=== PATIENT | female | born 1980 | race Caucasian/White ===

== ENCOUNTER → 2017-06-16 | Day surgery (SDC) | payer MEDICAID ==
[~2017-06-16] VITALS: Ht 165.1 cm; Wt 86.2 kg
[~2017-06-16] MED LIST: BUPIVACAINE HCL/PF 0.5% (5MG/ML) 10ML ONE; CEFAZOLIN 2,000 MG in DEXTROSE 5% WATER 50 ML IV SCH; CEFAZOLIN SODIUM 1000MG/VIAL ONE; DEXAMETHASONE 4MG/ML 1ML VIAL ONE; FENTANYL CITRATE/PF 50MCG/ML 2ML VIAL ONE; GLYCOPYRROLATE 0.2 MG/ML 2ML VIAL ONE; HYDROMORPHONE HCL/PF 2MG/ML CPJ IV PRN; IBUP-2030 PO; LABETALOL HCL 20MG/4ML CARPUJECT IV PRN; LIDOCAINE HCL/PF 1% 10 MG/ML 5ML VIAL ONE; MEPERIDINE HCL/PF 25MG/ML CPJ IV PRN; MIDAZOLAM HCL 2 MG/2 ML VIAL ONE; NEOSTIGMINE METHYLSULFATE 1MG/ML 10 ML VIAL ONE; ONDANSETRON HCL 4MG/2ML VIAL IV PRN; ONDANSETRON HCL 4MG/2ML VIAL ONE; PROPOFOL 200MG/20ML VIAL IV ONE; ROCURONIUM BROMIDE 10MG/ML VIAL 5ML IV ONE; SODIUM CHLORIDE 0.9% 10ML VIAL ONE; SUCCINYLCHOLINE CHLORIDE 200MG/10ML VIAL IV ONE
[2017-06-16 07:19] LABS: UCG SCREEN NEGATIVE
[2017-06-16 08:53] VITALS: BP 121/83
== END | disposition home or self-care (01) ==
LOC: OR 05:42
PROVIDERS: ATTEND Obstetrics & Gynecology Obstetrics
DX: Z30.2 Encounter for sterilization (principal); J45.909 Unspecified asthma, uncomplicated; Z98.890 Other specified postprocedural states; Z83.3 Family history of diabetes mellitus
CPT/HCPCS: 58670; 81025; 82962; A4216; C1725; J0330; J0690; J1100; J2175; J2250; J2405; J2710; J3010; J3490; J2704; J7060